=== PATIENT | male | born 1970 | race Caucasian/White ===

== ENCOUNTER 2018-07-21 14:16 | Emergency (ER) | payer OTHER ==
[2018-07-21 15:18] VITALS: O2SAT 98
--- NOTE | 2018-07-21 15:34 | ED PDOC ---
HPI: Hypertension/Hypotension Time Seen by Provider: 07/21/18 15:11 Chief Complaint (Nursing): Alcohol Ingestion Chief Complaint (Provider): Elevated blood pressure History Per: Patient History/Exam Limitations: no limitations Onset/Duration Of Symptoms: Hrs Current Symptoms Are (Timing): Still Present Additional Complaint(s): 48 y/o male presents to the ED for evaluation of an elevated blood pressure, onset prior to arrival. Patient reports of a history of HTN and states he has not taken his medications (Lisinopril 12.5 mg) for one week. When questioned why, patient states he did not need to take it. Patient offers no other complaints including nausea, vomiting, diarrhea, headaches, dizziness, chest pain and shortness of breath. No dizziness, abd pain, numbness, tingles. PMD: Britton Castaneda Past Medical History Reviewed: Historical Data, Nursing Documentation, Vital Signs Vital Signs: Last Vital Signs Temp 97.5 F L 07/21/18 14:41 Pulse 90 07/21/18 15:17 Resp 19 07/21/18 15:17 BP 168/125 H 07/21/18 15:17 Pulse Ox 98 07/21/18 15:17 - Medical History PMH: HTN - Surgical History Surgical History: No Surg Hx - Family History Family History: States: Unknown Family Hx - Social History Alcohol: > 2 Drinks/Day Drugs: Denies - Home Medications Home Medications: Ambulatory Orders Medication Instructions Recorded Lisinopril [Zestril] 12.5 mg PO DAILY 10 Days tab 07/21/18 - Allergies Allergies/Adverse Reactions: Allergies Allergy/AdvReac Type Severity Reaction Status Date / Time No Known Allergies Allergy Verified 07/21/18 14:41 Review of Systems ROS Statement: Except As Marked, All Systems Reviewed And Found Negative Constitutional: Positive for: Other (elevated blood pressure) Cardiovascular: Negative for: Chest Pain Respiratory: Negative for: Shortness of Breath Gastrointestinal: Negative for: Nausea, Vomiting, Diarrhea Neurological: Negative for: Headache, Dizziness Physical Exam - Reviewed Nursing Documentation Reviewed: Yes Vital Signs Reviewed: Yes - Physical Exam Appears: Positive for: No Acute Distress Head Exam: Positive for: ATRAUMATIC, NORMOCEPHALIC Skin: Positive for: Normal Color, Warm, Dry Eye Exam: Positive for: Normal appearance, EOMI, PERRL ENT: Positive for: Normal ENT Inspection Neck: Positive for: Normal, Painless ROM, Supple Cardiovascular/Chest: Positive for: Regular Rate, Rhythm. Negative for: Murmur Respiratory: Positive for: Normal Breath Sounds. Negative for: Respiratory Distress Gastrointestinal/Abdominal: Positive for: Normal Exam, Soft. Negative for: Tenderness Back: Positive for: Normal Inspection. Negative for: L CVA Tenderness, R CVA Tenderness Extremity: Positive for: Normal ROM. Negative for: Tenderness, Pedal Edema, Deformity Neurologic/Psych: Positive for: Alert, manager intelligence II-XII, Oriented (x3). Negative for: Motor/Sensory Deficits, Aphasia, Facial Droop - Laboratory Results Result Diagrams: 07/21/18 15:52 07/21/18 15:52 Lab Results: no acute - ECG ECG: Positive for: Interpreted By Me, Viewed By Me ECG Rhythm: Positive for: Normal QRS, Normal ST Segment, Sinus Rhythm O2 Sat by Pulse Oximetry: 98 (RA) Pulse Ox Interpretation: Normal - Progress ED Course And Treament: 1636: Stable. AAOx3. Pain free. BP improved. Has no symptoms. Fu with pcp. Medical Decision Making Medical Decision Making: Time: 1534 Impression: Elevated blood pressure Plan: -- EKG -- Alcohol Serum -- CMP -- Troponin I -- CBC with Differentials -- Ativan 0.5 mg IVP -- Lisinopril 12.5 mg PO -- Patient states he does drink alcohol. As per nursing note, patient did not drink alcohol and believes he developed tremors due to that today. Patient denies suicidal ideation and homicidal ideation. Scribe Attestation: Documented by Jesusita Echavarria, acting as a scribe for Yunier Wu MD. Provider Scribe Attestation: All medical record entries made by the Scribe were at my direction and personally dictated by me. I have reviewed the chart and agree that the record accurately reflects my personal performance of the history, physical exam, m edical decision making, and the department course for this patient. I have also personally directed, reviewed, and agree with the discharge instructions and disposition. Disposition - Clinical Impression Clinical Impression: HTN (hypertension) - Patient ED Disposition Is Patient to be Admitted: No Counseled Patient/Family Regarding: Studies Performed, Diagnosis, Need For Followup, Rx Given - Disposition Referrals: [facility] [Outside] - 07/22/18 Disposition: Routine/Home Disposition Time: 16:49 Condition: STABLE Additional Instructions: Return if not better in 3 days. Prescriptions: Lisinopril [Zestril] 12.5 mg PO DAILY 10 Days tab Instructions: High Blood Pressure in Adults Forms: [facility] (Czech) Print Language: SWAZI
[2018-07-21 15:56] LABS: BASO % 0.4 % (0.0-2.0); EOS % 0.1 % (0.0-4.0); HEMOGLOBIN 14.1 g/dL (12.0-18.0); LYMPH % 12.7 % (20.0-40.0); MEAN CELL VOLUME 88.8 fl (80.0-94.0); MEAN CORPUSCULAR HEMOGLOBIN 29.1 pg (27.0-31.0); MEAN CORPUSCULAR HGB CONC 32.8 g/dL (33.0-37.0); MEAN PLATELET VOLUME 9.4 fl (7.2-11.7); MONO # 0.4 K/uL (0.0-0.8); MONO % 4.9 % (0.0-10.0); NEUT # 6.2 K/uL (1.8-7.0); NEUT % 81.9 % (50.0-75.0); RBC 4.85 Mil/uL (4.40-5.90); RED CELL DISTRIBUTION WIDTH 14.1 % (11.5-14.5); WHITE BLOOD COUNT 7.6 K/uL (4.8-10.8)
[2018-07-21 16:06] LABS: ALB/GLOB RATIO 1.3 (1.0-2.1); ALT/SGPT 60 U/L (21-72); AST/SGOT 52 U/L (17-59); BLOOD UREA NITROGEN 10 mg/dl (9-20); CALCIUM 9.5 mg/dL (8.4-10.2); GFR NON-AFRICAN AMERICAN > 60
[2018-07-21 17:01] VITALS: BP 130/90; PULSE 92; RESP 19; TEMP 97.7
--- NOTE | 2018-07-21 20:26 | CARD ---
APPROVED REPORT Date of service: 07/21/2018 EKG Measurement Heart [id number] <Conclusion> Sinus rhythm with sinus arrhythmia with short OK. No delta wave Minimal voltage criteria for LVH, may be normal variant Borderline ECG
== END 2018-07-21 17:02 | disposition home or self-care (01) ==
LOC: H.ER 14:16
DX: I10 Essential (primary) hypertension (principal); Z79.899 Other long term (current) drug therapy
CPT/HCPCS: 80053; 80320; 84484; 85025; 93005; 96374; 99284; J2060